=== PATIENT | male | born 1970 | race Caucasian/White ===

== ENCOUNTER 2021-04-02 08:07 | Emergency (ER) | payer OTHER ==
[2021-04-02] MEDS ORDERED: NAPROXEN500 MG PO (09:37)
== END 2021-04-02 10:13 | disposition home or self-care (01) ==
LOC: FER 08:07
DX: S46.011A Strain of muscle(s) and tendon(s) of the rotator cuff of right shoulder, initial encounter (principal); M10.9 Gout, unspecified; Z79.899 Other long term (current) drug therapy; W19.XXXA Unspecified fall, initial encounter
CPT/HCPCS: 73030; J1885

== ENCOUNTER 2022-03-20 07:46 | Emergency (ER) | payer OTHER ==
[~2022-03-20 07:46] MED LIST: NAPROXEN500 MG PO
[2022-03-20] MEDS ORDERED: FLEXERIL5 MG PO (08:21)
[2022-03-20] MEDS ORDERED: MEDROL 4MG DOSEP4 MG PO (08:21)
== END 2022-03-20 09:41 | disposition home or self-care (01) ==
LOC: FER 07:46
DX: S13.4XXA Sprain of ligaments of cervical spine, initial encounter (principal); E11.9 Type 2 diabetes mellitus without complications; Z79.84 Long term (current) use of oral hypoglycemic drugs; Z28.310 Unvaccinated for COVID-19; X58.XXXA Exposure to other specified factors, initial encounter; Y93.89 Activity, other specified; Y92.89 Other specified places as the place of occurrence of the external cause; Y99.0 Civilian activity done for income or pay
CPT/HCPCS: 96372; J1885; J2920